=== PATIENT | female | born 1975 | race Caucasian/White ===

== ENCOUNTER → 2016-04-17 | Outpatient (CLI) | payer OTHER ==
[~2016-04-17] MED LIST: BROMFED DM COU118 ML PO; CIPROFLOXACIN500 MG PO; LISINOPRIL/HCTZ1 TA3 PO; LOVASTATIN20 MG PO; PAXIL20 MG
--- NOTE | 2016-04-21 09:03 | RADIOLOGY REPORT PS360 ---
DIG MAMM-SCREEN FELICE W/CAD CAD Screening COMPARISON: None, this is baseline INDICATION: There is no personal or family history of breast cancer TECHNIQUE: Standard CC and MLO images were obtained. R2 CAD reviewed. FINDINGS: Moderate diffuse heterogenic fibroglandular densities are seen in the central portions of both breasts. The findings are fairly symmetrical, glandular elements slightly more prominent left breast than right. There is no suspicious lesion in either breast and no suspicious microcalcifications. There are small nodes in both axilla. IMPRESSION: Moderate diffuse breast density with no suspicious lesion seen recommend yearly follow-up BI-RADS CATEGORY: 1_Negative RECOMMENDED FOLLOWUP: 12M 12 MONTH FOLLOW-UP (A letter has been sent to the patient regarding results of the study.)
== END ==
LOC: RAD 16:29
DX: Z12.31 Encounter for screening mammogram for malignant neoplasm of breast (principal)
CPT/HCPCS: G0202

== ENCOUNTER → 2016-10-13 | Outpatient (CLI) | payer OTHER ==
[2016-10-13 15:19] LABS: HEMOGLOBIN 12.4 g/dL (12.2-16.2); LYMPH # 1.9 K/mm3 (0.7-4.5); LYMPH % 20.4 % (10-50.0)
[2016-10-13 16:55] LABS: BUN 13 mg/dL (7-18)
[2016-10-13 20:58] LABS: GFR (ESTIMATED) 69 ML/MIN (59-)
== END ==
LOC: LAB 14:22
PROVIDERS: Nurse Practitioner Obstetrics & Gynecology
DX: N92.0 Excessive and frequent menstruation with regular cycle (principal); N92.6 Irregular menstruation, unspecified; R10.2 Pelvic and perineal pain; Z01.812 Encounter for preprocedural laboratory examination

== ENCOUNTER → 2016-11-05 | Outpatient (CLI) | payer OTHER ==
[2016-11-05 08:28] LABS: BUN 16 mg/dL (7-18)
[2016-11-05 08:29] LABS: GFR (ESTIMATED) 69 ML/MIN (59-)
== END ==
LOC: LAB 07:55
PROVIDERS: Nurse Practitioner Family
DX: I10 Essential (primary) hypertension (principal); E78.2 Mixed hyperlipidemia

== ENCOUNTER 2017-02-15 09:02 | Emergency (ER) | payer OTHER ==
[~2017-02-15] VITALS: Ht 160 cm; Wt 72.6 kg
--- OUTSIDE RECORDS SUMMARY | 2017-02-15 09:12 | External Medical Summary Rpt | CCD ---
Author Author DOMITILA Address Unknown Phone [email or web address] Purpose Continuity of Care Document - through 2016
--- OUTSIDE RECORDS SUMMARY | 2017-02-15 09:12 | External Medical Summary Rpt | CCD ---
Author Author DOMITILA Address Unknown Phone .[employer] Purpose Continuity of Care Document - through 2016
--- OUTSIDE RECORDS SUMMARY | 2017-02-15 09:12 | External Medical Summary Rpt | CCD ---
Author Author DOMITILA Address Unknown Phone [email or web address] - is now [employer] Purpose Continuity of Care Document - through 2016
--- OUTSIDE RECORDS SUMMARY | 2017-02-15 09:12 | External Medical Summary Rpt | CCD ---
Author Author DOMITILA Address Unknown Phone [email or web address] Purpose Continuity of Care Document - through 2016
--- OUTSIDE RECORDS SUMMARY | 2017-02-15 09:12 | External Medical Summary Rpt | CCD ---
Demographics Preferred Language Maltese Marital Status Unknown Mormon Affiliation Unknown Race Unknown Ethnic Group Unknown Author Author , DOMITILA RAMESH Address Unknown Phone Immunization No patient found.
--- OUTSIDE RECORDS SUMMARY | 2017-02-15 09:12 | External Medical Summary Rpt | CCD ---
Demographics Preferred Language Yoruba Marital Status Unknown Scientology Affiliation Unknown Race Unknown Ethnic Group Unknown Author Author , DOMITILA RAMESH Address Unknown Phone Immunization No patient found.
--- NOTE | 2017-02-15 09:32 | Urgent Treatment Center Report ---
History of Present Issue Date/Time Seen by Provider 02/15/17 0910 Visit Reason Pt arrived:Walked Presenting Problem:PT C/O BODYACHES AND FEELING THOUGH SHE HAS THE FLU Location if Accident: Onset of symptoms date/time:/ or onset unknown for:MEDICAL HX UNKNOWN Have you (or family members/close friends) recently traveled outside the [place]? N If Yes, where/when: Have you had exposure to infectious disease within the past month? TB? Other? Specify: c/o "I think I may have the flu". Grandson and daughter live with her. He has tested positive and daughter has same symptoms. Bodyaches, fever 100, cough all starting yesterday. ibuprofen helps "somewhat". Last dose at 9am this morning. Has had flu vaccine. Also works in a hospital clinic. Source patient Exam Limitations no limitations ALLERGIES Coded Allergies: No Known Allergies (10/16/16) Home Medications Active Scripts D-METHORPHAN HB/P-EPD HCL/BPM (Bromfed Dm Cough Syrup) 10 ML PO QIDP PRN cough #240 SYR Prov: 05/19/16 Reported Medications PAROXETINE (Paroxetine HCl) Ciprofloxacin HCl 500 MG PO BID Lisinopril & Hctz (Lisinopril-Hctz 10-12.5 MG Tab) 1 TAB PO DAILY #90 Lovastatin 20 MG PO DAILY #30 History Medical History General CAD? No Angina: No ND: No Hypertension? Yes Hyperlipidemia? Yes CHF? No DVT? No PE? No COPD? No Asthma? No Anemia? No GERD? No Gastric ulcers? No GI Bleed? No Hernia? No Thyroid Problems? No Hypothyroidism? No CVA? No Seizures? No Diabetes? No Renal Insuffiency? No UTI? No Stones? No BPH? No GB Disease: No Nephritic Syndrome? No Asplenia? No Hepatitis? No Sickle Cell Disease? No Arthritis? No Migraines? No Cataracts? No Glaucoma? No MRSA? No HIV? No TB? No Anxiety? No Depression? No Cancer? No More? No Immunization HX DT/Tetanus UNKNOWN Surgical Hx Previous Surgery?Y Tubal Ligation THUMB Family History Family HX Diabetes No CAD No Hypertension Yes Hyperlipidemia Yes Cancer Yes TB No Social History Smoking Hx Smoker: Current Every Day Smoker Tobacco: Yes Type Cigarettes Packs/day < 1 Pack Alcohol Alcohol: Yes Review of Systems All Other Systems Reviewed and Negative Constitutional see HPI, denies chills, malaise ("just more tired"), denies weakness Eyes denies drainage ENT ear pain (achy), nose discharge, nose congestion, throat pain. denies: ear discharge, throat swelling. Respiratory cough (nonprod), denies shortness of breath, denies wheezing Cardiovascular denies chest pain Gastrointestinal denies no symptoms reported Musculoskeletal see HPI Skin denies rash Psychiatric/Neurological headache (intermittent) Physical Exam Vital Signs Vital Signs Date Time Temp Pulse Resp B/P Pulse O2 O2 Flow FiO2 Ox Delivery Rate 02/15 923 98.0 79 18 133/82 95 General Appearance normal appearance, no apparent distress Eye Exam - bilateral eye normal exam Ear, Nose, Throat normal ENT inspection Neck non-tender, supple Respiratory Status Yes: non productive cough. No: respiratory distress, use of accessory muscles, productive cough. Lung Sounds anterior: lungs clear. posterior: lungs clear. bilateral: lungs clear. Cardiovascular regular rate/rhythm, no peripheral edema, no murmur Neurologic alert, oriented x 3 Skin normal color, warm/dry Lymphatic no adenopathy Medical Decision Making LABS/Meds/Orders Pt receiving controlled substance in ED? No Results/Orders Orders Procedure Date/time Status [facility] STREP SCREEN 02/16 912 Active [facility] FLU A,B 02/16 912 Active at time of discharge, nurses reported but have not entered flu A and B negative Strep negative (HONEY RODRIGUEZ APRN) Departure Departure Time of Disposition 09 Disposition DC Home or Self Care(routine) Clinical Impression Primary Impression: Influenza-like illness Condition STABLE Referrals ÁLVARO AREVALO (PCP) IMMEDIATELY for new or worsening symptoms OR no noticeable improvement over the next 72 hours. 911 for difficulty breathing Patient Instructions DI for Influenza -- Adult Additional Instructions * Although your flu test was negative, your symptoms are consistent w/ the flu. more likely considering your close exposure * Start Tamiflu today if you are going to take it. Discussed risks and possible benefits. Pt would like to start tamiflu * Lots of rest * Increase fluids, water, gatorade, powerade, pedialyte if /toddler/child * Monitor Temp. Tylenol every 4 hours as needed no more then 5 times a day or 4000mg in 24 hours and/or ibuprofen every 6 hours as needed no more then 3200mg in 24 hours (as long as your primary care doctor has told you that it is ok to take both) for fever/aches/pain. ER if fever no less than 101 despite tylenol and Ibuprofen * You (or your child) are contagious until no fever, aches, chills x 24 hours without medication for symptoms. * * Your throat swab was sent for culture. Those results are typically sent to your primary care. Be sure to follow up in 2-3 days if no improvement so they can review those results and treat if necessary. If you don't have primary care, I recommend you get one but in the mean time, you will have to return to a walk in clinic. Discharge Counseling Counseled pt/family regarding diagnosis, test results, medications/RX, home care, follow up needs Prescriptions Current Visit Scripts Oseltamivir Phosphate (Tamiflu 75MG Capsule) 75 MG PO BID #10 CAP at 0968
[2017-02-15] MEDS ORDERED: TAMIFLU 75MG CA75 MG PO (09:37)
[2017-02-15 09:41] VITALS: BP 133/82
[2017-02-15 09:41] LABS: UTC STREP SCREEN NOT DETECTED (NOTDETECTED)
== END 2017-02-15 09:42 | disposition home or self-care (01) ==
LOC: UTC 09:02
PROVIDERS: Nurse Practitioner Family
DX: J11.1 Influenza due to unidentified influenza virus with other respiratory manifestations (principal); I10 Essential (primary) hypertension; E78.5 Hyperlipidemia, unspecified; Z79.899 Other long term (current) drug therapy; F17.210 Nicotine dependence, cigarettes, uncomplicated